=== PATIENT | female | born 1995 | race American Indian/Alaskan Native ===

== ENCOUNTER 2018-02-12 09:16 | Emergency (ER) | payer MEDICAID ==
[2018-02-12 10:00] LABS: Basophils % (Auto) 0.5 % (0.0-1.8); Eosinophils % (Auto) 0.4 % (0.0-4.3); Hematocrit 37.2 % (30.3-42.9); Hemoglobin 11.8 gm/dl (10.1-14.3); Lymphocytes # (Auto) 0.6 K/mm3 (1.2-5.4); Lymphocytes % (Auto) 6.9 % (13.4-35.0); Mean Corpuscular HGB Conc 32 % (30-34); Mean Corpuscular Volume 79 fl (79-97); Monocytes # (Auto) 0.7 K/mm3 (0.0-0.8); Monocytes % (Auto) 8.1 % (0.0-7.3); Red Blood Count 4.73 M/mm3 (3.65-5.03); Red Cell Distribution Width 17.4 % (13.2-15.2)
[2018-02-12 10:03] LABS: Mean Corpuscular Hemoglobin 25 pg (28-32); Platelet Count 289 K/mm3 (140-440)
[2018-02-12 10:19] LABS: Alanine Aminotransferase 9 units/L (7-56); Albumin 5.1 g/dL (3.9-5); BUN/Creatinine Ratio 16; Blood Urea Nitrogen 11 mg/dL (7-17); Hemolysis Index 5; Lipase 11 units/L (13-60)
[2018-02-12 11:01] LABS: Bilirubin,Urine NEG (Negative); Blood,Urine NEG (Negative); Color,Urine Yellow (Yellow); Mucus,Urine 3+ /HPF; Urobilinogen,Urine < 2.0 mg/dL (<2.0)
[2018-02-12 11:02] LABS: HCG Qualitative,Urine Negative (Negative)
--- NOTE | 2018-02-12 11:13 | Emergency Department Report ---
ED Abdominal Pain HPI - General Chief Complaint: Abdominal Pain Stated Complaint: ABDOMINAL PAIN Time Seen by Provider: 02/12/18 11:01 Source: patient, family, RN notes reviewed Mode of arrival: Wheelchair Limitations: No Limitations - History of Present Illness Initial Comments: This is a 22-year-old female who was previously unknown to this provider. Patient does not have a local primary care doctor and has no chronic medical conditions. The patient presents to the ER with a complaint of abdominal pain, nausea and vomiting. The abdominal pain is in the left lower quadrant, suprapubic region, right lower quadrant and right upper quadrant. It has been present for the past 2-3 days. It is sharp and aching, patient indicates no exacerbating or relieving factors. The patient denies irritative and obstructive urinary symptoms, the patient denies feminine discharge. Patient reports multiple sexual contacts within the past year, reports not all of her sexual encounters have been with barrier protection. MD Complaint: abdominal pain -: Gradual Location: RUQ, LLQ, RLQ, suprapubic Severity: moderate Quality: cramping, aching Consistency: intermittent Improves With: rest Worsens With: movement Associated Symptoms: nausea, vomiting. denies: diarrhea, fever, chills, constipation, dysuria, hematemesis, hematochezia, melena, hematuria, anorexia, syncope - Related Data Previous Rx's Medication Instructions Recorded Last Taken Type Acetaminophen [Tylenol Arthritis] 650 mg PO Q6HR PRN #30 tablet.er 02/12/18 Unknown Rx Doxycycline [Vibramycin] 100 mg PO Q12HR #20 capsule 02/12/18 Unknown Rx Ondansetron [Zofran Odt] 4 mg PO Q8HR PRN #20 tab.rapdis 02/12/18 Unknown Rx Allergies Allergy/AdvReac Type Severity Reaction Status Date / Time No Known Allergies Allergy Unverified 02/12/18 09:30 ED Review of Systems ROS: Stated complaint: ABDOMINAL PAIN Other details as noted in HPI Comment: All other systems reviewed and negative ED Past Medical Hx - Past Medical History Previous Medical History?: Yes Additional medical history: Gallbladder pain and sludge, vaginal dleivery x 1 - Surgical History Past Surgical History?: No - Social History Smoking Status: Current Every Day Smoker Substance Use Type: Alcohol, Marijuana - Medications Home Medications: Home Medications Medication Instructions Recorded Confirmed Last Taken Type Acetaminophen [Tylenol Arthritis] 650 mg PO Q6HR PRN #30 tablet.er 02/12/18 Unknown Rx Doxycycline [Vibramycin] 100 mg PO Q12HR #20 capsule 02/12/18 Unknown Rx Ondansetron [Zofran Odt] 4 mg PO Q8HR PRN #20 tab.rapdis 02/12/18 Unknown Rx ED Physical Exam - General Limitations: No Limitations General appearance: alert, in no apparent distress - Head Head exam: Present: atraumatic, normocephalic - Eye Eye exam: Present: normal appearance, EOMI. Absent: nystagmus - ENT ENT exam: Present: normal exam, normal orophraynx, mucous membranes moist, normal external ear exam - Neck Neck exam: Present: normal inspection, full ROM - Respiratory Respiratory exam: Present: normal lung sounds bilaterally. Absent: respiratory distress - Cardiovascular Cardiovascular Exam: Present: regular rate, normal rhythm, normal heart sounds. Absent: systolic murmur, diastolic murmur, rubs, gallop - GI/Abdominal GI/Abdominal exam: Present: soft, tenderness, normal bowel sounds, other ( suprapubic, bilateral lower quadrant tenderness, no rebound, guarding or peritoneal signs). Absent: distended, guarding, rebound, rigid, pulsatile mass - External exam: Present: normal external exam Speculum exam: Present: normal speculum exam. Absent: cervical discharge, vaginal bleeding, foreign body Bi-manual exam: Present: cervical motion tendernes, adnexal tenderness, other ( escorted by phuong villarreal). Absent: uterine enlargement, uterine tenderness - Extremities Exam Extremities exam: Present: normal inspection, full ROM, normal capillary refill. Absent: tenderness, pedal edema, joint swelling, calf tenderness - Back Exam Back exam: Present: normal inspection, full ROM. Absent: tenderness, CVA tenderness (R), paraspinal tenderness, vertebral tenderness - Neurological Exam Neurological exam: Present: alert, oriented X3, CN II-XII intact, normal gait, other (Extraocular movements intact. Tongue midline. No facial droop. Facial sensation intact to light touch in the V1, V2, V3 distribution bilaterally. 5 and 5 strength in 4 extremities.. Sensation is intact to light touch in 4 extremities.). Absent: motor sensory deficit - Psychiatric Psychiatric exam: Present: normal affect, normal mood - Skin Skin exam: Present: warm, dry, intact, normal color. Absent: rash ED Course Vital Signs 02/12/18 02/12/18 02/12/18 08:25 08:30 09:30 Temperature 98.2 F Pulse Rate 65 57 L 77 Respiratory 12 14 18 Rate Blood Pressure 133/65 133/65 140/100 O2 Sat by Pulse 98 99 100 Oximetry 02/12/18 02/12/18 02/12/18 11:04 11:15 11:30 Temperature Pulse Rate 52 L 57 L 60 Respiratory 11 L 14 14 Rate Blood Pressure 124/67 130/84 135/82 O2 Sat by Pulse 100 100 99 Oximetry - Reevaluation(s) Reevaluation #1: 02/12/18 13:23 Differential diagnosis, including but not limited to: Appendicitis, biliary disease, ovarian torsion, ovarian cyst, pelvic inflammatory disease, atypical urinary tract infection Assessment and plan: 22-year-old female, numerous sexual contacts with diffuse abdominal pain and reported nausea and vomiting. Has cervical motion tenderness and bilateral adnexal tenderness. Urinalysis suggestive but not diagnostic of Chlamydia cystitis. Has no irritative urinary symptoms. Ovarian flow is noted on the bilateral ovarian region on the ultrasound. CT scan with IV contrast demonstrates no discrete abscess, although appendicitis is not excluded. After appropriate medication with pain medication and nausea medication the patient's tenderness had resolved, there is specifically no right lower quadrant tenderness with a negative Rovsing sign, and there was also no right upper quadrant tenderness as well. Case was discussed with general surgeon on-call, Dr. Meredith; clinically I favor a diagnosis of pelvic inflammatory disease, and he agrees to see the patient in 24 hours has follow-up for repeat abdominal examination. Patient was medicated empirically for pelvic inflammatory disease, she is reliable to follow-up, and strongly encouraged to return in 24 hours either to this emergency room, or to the general surgeon's office for repeat evaluation. 02/12/18 13:26 Reevaluation #2: 02/12/18 13:49 The patient has an appointment tomorrow, at 9:30 AM, at [address] [place] [address] , [address], [facility], [address]; [phone], with Dr Meredith ED Medical Decision Making - Lab Data Result diagrams: 02/12/18 09:44 02/12/18 09:44 Vital Signs 02/12/18 02/12/18 02/12/18 08:25 08:30 09:30 Temperature 98.2 F Pulse Rate 65 57 L 77 Respiratory 12 14 18 Rate Blood Pressure 133/65 133/65 140/100 O2 Sat by Pulse 98 99 100 Oximetry 02/12/18 02/12/18 02/12/18 11:04 11:15 11:30 Temperature Pulse Rate 52 L 57 L 60 Respiratory 11 L 14 14 Rate Blood Pressure 124/67 130/84 135/82 O2 Sat by Pulse 100 100 99 Oximetry Lab Results 02/12/18 02/12/18 02/12/18 Range/Units 09:44 09:44 10:22 WBC 9.0 (4.5-11.0) K/mm3 RBC 4.73 (3.65-5.03) M/mm3 Hgb 11.8 (10.1-14.3) gm/dl Hct 37.2 (30.3-42.9) % MCV 79 (79-97) fl MCH 25 L (28-32) pg MCHC 32 (30-34) % RDW 17.4 H (13.2-15.2) % Plt Count 289 (140-440) K/mm3 Lymph % (Auto) 6.9 L (13.4-35.0) % Winn % (Auto) 8.1 H (0.0-7.3) % Eos % (Auto) 0.4 (0.0-4.3) % Baso % (Auto) 0.5 (0.0-1.8) % Lymph # 0.6 L (1.2-5.4) K/mm3 Winn # 0.7 (0.0-0.8) K/mm3 Eos # 0.0 (0.0-0.4) K/mm3 Baso # 0.0 (0.0-0.1) K/mm3 Seg Neutrophils % 84.1 H (40.0-70.0) % Seg Neutrophils # 7.6 (1.8-7.7) K/mm3 Sodium 140 (137-145) mmol/L Potassium 3.5 L (3.6-5.0) mmol/L Chloride 98.0 (98-107) mmol/L Carbon Dioxide 22 (22-30) mmol/L Anion Gap 24 mmol/L BUN 11 (7-17) mg/dL Creatinine 0.7 (0.7-1.2) mg/dL Estimated GFR > 60 ml/min BUN/Creatinine Ratio 16 % Glucose 117 H (65-100) mg/dL Calcium 10.0 (8.4-10.2) mg/dL Total Bilirubin 0.60 (0.1-1.2) mg/dL AST 19 (5-40) units/L ALT 9 (7-56) units/L Alkaline Phosphatase 45 (35-129) units/L Total Protein 9.2 H (6.3-8.2) g/dL Albumin 5.1 H (3.9-5) g/dL Albumin/Globulin Ratio 1.2 % Lipase 11 L (13-60) units/L Urine Color Yellow (Yellow) Urine Turbidity Clear (Clear) Urine pH 5.0 (5.0-7.0) Ur Specific [place] 1.028 (1.003-1.030) Urine Protein 100 mg/dl (Negative) mg/dL Urine Glucose (UA) Neg (Negative) mg/dL Urine Ketones 20 (Negative) mg/dL Urine Blood Neg (Negative) Urine Nitrite Neg (Negative) Urine Bilirubin Neg (Negative) Urine Urobilinogen < 2.0 (<2.0) mg/dL Ur Leukocyte Esterase Neg (Negative) Urine WBC (Auto) 21.0 H (0.0-6.0) /HPF Urine RBC (Auto) 3.0 (0.0-6.0) /HPF U Epithel Cells (Auto) 2.0 (0-13.0) /HPF Urine Mucus 3+ /HPF Urine HCG, Qual Negative (Negative) - Radiology Data Radiology results: report reviewed, image reviewed Referring Physician: TEJAL SCHWAB Patient Name: AB PARK Date of : 1995 Sex: Female Report Date: 2018-02-12 Report Status: Finalized Findings [facility] [address] [place] [address] Cat Scan Report Signed Patient: AB PARK MR#: [id number] : 1995 Acct:[id number] Age/Sex: 22 / F ADM Date: 02/12/18 Loc: ED Attending Dr: Ordering Physician: TEJAL SCHWAB MD Date of Service: 02/12/18 Procedure(s): CT abdomen pelvis w con Accession Number(s): [id number] cc: TEJAL SCHWAB MD CT ABDOMEN AND PELVIS WITH CONTRAST INDICATION: Lower abdominal pain. COMPARISON: None similar. FINDINGS: Abdomen and pelvis CT performed following intravenous administration of 100 cc of Omnipaque 300. No oral contrast given. LUNG BASES: Slightly decreased AP chest diameter and exaggerated heart size. No effusions. Mild nonspecific distal esophageal wall prominence/thickening, not excluded for gastroesophageal reflux and/or hiatal hernia, amongst others. ABDOMEN: Left hepatic lobe tip extends into the left upper quadrant. Some streak artifact from umbilical piercing instrument. Some motion artifact. Liver, spleen, gallbladder, pancreas, adrenals, aorta, IVC and kidneys otherwise grossly within normal limits. Indeterminate 5 mm left renal cortical hypodensity posteriorly, axial image 41, series 2. No ascites or size significant adenopathy. Nonopacified GI tract evaluation limited, though grossly nonobstructive. Cecum somewhat low-lying in the right hemipelvis. PELVIS: Small pelvic free fluid in the deep right hemipelvis measures 33HU, axial image 136, possibly hemorrhagic. Approximately 2 cm left adnexal cyst. Uterus, suboptimally distended nonopacified urinary bladder and rectosigmoid otherwise grossly unremarkable. No size significant adenopathy. Unremarkable bones. CONCLUSION: 1. Small pelvic free fluid and a left adnexal/ovarian cyst noted that may be physiologic in a patient of this age. However, cecum suspected low lying in the right hemipelvis with bowel/appendiceal assessment suboptimal. Please also correlate clinically and with laboratory values. 2. Few other incidental findings, as above. Thank you for the opportunity to participate in this patient's care. Transcribed By: RS Dictated By: GWENDOLYN MEMBRENO MD Electronically Authenticated By: GWENDOLYN MEMBRENO MD Signed Date/Time: 02/12/18 1305 Pelvic ultrasound within normal limits, bilateral ovarian flow noted. Critical care attestation.: If time is entered above; I have spent that time in minutes in the direct care of this critically ill patient, excluding procedure time. ED Disposition Clinical Impression: Lower abdominal pain Disposition: DC-01 TO HOME OR SELFCARE Is pt being admited?: No Does the pt Need Aspirin: No Condition: Stable Instructions: Abdominal Pain (ED) Additional Instructions: As we discussed, your laboratory studies appeared to be within normal limits. You are not . The urinalysis suggested but does not diagnose chlamydia infection . Given all this, you'll be treated empirically for disease called pelvic inflammatory disease. We typically treat young females with unexplained lower abdominal pain to protect your ability to have children safely in the future. Cultures were sent today, and results will be available next 3-5 days. Please have your primary care doctor call the medical records department to obtain your culture results. Take the antibiotic therapy as directed. Take the nausea medication and pain medication as directed. I recommend outpatient testing for sexually transmitted diseases, including hepatitis, syphilis and HIV. I also recommend that you abstain from sexual activity until you have completed her antibiotic therapy, a physician states that it is safe for you to resume sexual activity, and any partners that you have been sexually active with have been tested/treated/evaluated for sexual transmitted diseases. However, because the CAT scan was nondiagnostic and did not exclude an inflamed/ infected appendix, it is recommended that he follow-up tomorrow, and 24 hours for repeat abdominal examination. Patient may follow-up either in this emergency room for repeat abdominal examination, or with the general surgeon: Dr Meredith It is very important to closely follow-up as recommended I recommend that you return to the ER right away with worsening pain, migration of pain, intractable nausea/vomiting, inability tolerate liquid feeds. The patient has an appointment tomorrow, at 9:30 AM, at [address] [place] [address] , [address], [facility]; [phone], with Dr Meredith Prescriptions: Acetaminophen [Tylenol Arthritis] 650 mg PO Q6HR PRN #30 tablet.er PRN Reason: Pain Doxycycline [Vibramycin] 100 mg PO Q12HR #20 capsule Ondansetron [Zofran Odt] 4 mg PO Q8HR PRN #20 tab.rapdis PRN Reason: Nausea Referrals: BIANCA ORTEGA MD [Primary Care Provider] - 3-5 Days LINDY MEREDITH MD [Staff Physician] - 3-5 Days
[2018-02-12] MEDS ORDERED: TORADOL IV ONE (11:29)
[2018-02-12] MEDS ORDERED: ZOFRAN IV ONE (11:29)
[2018-02-12] MEDS ORDERED: NACL 0.9% 1000 ML 1,000 ML IV ONE (11:29)
[2018-02-12] MEDS ORDERED: SUBLIMAZE IV ONE ×2 (11:29→12:00)
--- NOTE | 2018-02-12 13:09 | Cat Scan Report ---
CT ABDOMEN AND PELVIS WITH CONTRAST INDICATION: Lower abdominal pain. COMPARISON: None similar. FINDINGS: Abdomen and pelvis CT performed following intravenous administration of 100 cc of Omnipaque 300. No oral contrast given. LUNG BASES: Slightly decreased AP chest diameter and exaggerated heart size. No effusions. Mild nonspecific distal esophageal wall prominence/thickening, not excluded for gastroesophageal reflux and/or hiatal hernia, amongst others. ABDOMEN: Left hepatic lobe tip extends into the left upper quadrant. Some streak artifact from umbilical piercing instrument. Some motion artifact. Liver, spleen, gallbladder, pancreas, adrenals, aorta, IVC and kidneys otherwise grossly within normal limits. Indeterminate 5 mm left renal cortical hypodensity posteriorly, axial image 41, series 2. No ascites or size significant adenopathy. Nonopacified GI tract evaluation limited, though grossly nonobstructive. Cecum somewhat low-lying in the right hemipelvis. PELVIS: Small pelvic free fluid in the deep right hemipelvis measures 33HU, axial image 136, possibly hemorrhagic. Approximately 2 cm left adnexal cyst. Uterus, suboptimally distended nonopacified urinary bladder and rectosigmoid otherwise grossly unremarkable. No size significant adenopathy. Unremarkable bones. CONCLUSION: 1. Small pelvic free fluid and a left adnexal/ovarian cyst noted that may be physiologic in a patient of this age. However, cecum suspected low lying in the right hemipelvis with bowel/appendiceal assessment suboptimal. Please also correlate clinically and with laboratory values. 2. Few other incidental findings, as above. Thank you for the opportunity to participate in this patient's care.
--- NOTE | 2018-02-12 13:14 | Ultrasound Report ---
ULTRASOUND PELVIS DUPLEX DOPPLER COMPLETE - TRANSABDOMINAL AND TRANSVAGINAL: INDICATION: Pelvic pain. COMPARISON: None similar at this institution. FINDINGS: Transabdominal and transvaginal pelvic sonography with spectral Doppler performed in this patient with LMP unknown and demonstrates a homogenous, anteverted 8 x 4.1 x 5.4 cm uterus with endometrial thickness of 1.3 cm, endovaginal image 8. Minimal pelvic free fluid with possible low level echoes. Unremarkable 3.4 x 1 x 1.6 cm right ovary. Left ovary is 3.5 x 2.5 x 2.4 cm with an approximately 1.9 x 1.2 cm possible hemorrhagic intrinsic cyst as on endovaginal image 23. Preserved bilateral ovarian blood flow. CONCLUSION: Physiologic pelvic sonogram with findings, as described. Thank you for the opportunity to participate in this patient's care.
[2018-02-12] MEDS ORDERED: ROCEPHIN/NS 1 GM/50 ML 1 GM/50 ML BAG IV ONE (13:17)
[2018-02-12] MEDS ORDERED: VIBRAMYCIN PO ONE (13:17)
[2018-02-12] MEDS ORDERED: cefTRIAXone 1 GM in NACL 0.9% 20 ML IV ONE (14:00)
[2018-02-12 14:58] VITALS: BP 140/71
== END 2018-02-12 14:55 | disposition home or self-care (01) ==
LOC: ED 09:16
DX: R10.32 Left lower quadrant pain (principal); R10.31 Right lower quadrant pain; F17.200 Nicotine dependence, unspecified, uncomplicated; F12.10 Cannabis abuse, uncomplicated
CPT/HCPCS: 36415; 74177; 76830; 80053; 81001; 81025; 83690; 85025; 87086; 87210; 87591; 93975; 96361; 96374; 96375; 99285; J0696; J1885; J2405; J3010; J7030; Q9967

== ENCOUNTER 2020-08-18 21:42 | Emergency (ER) | payer MEDICAID ==
[2020-08-19 00:09] LABS: Hemoglobin 11.5 gm/dl (10.1-14.3)
[2020-08-19 00:22] LABS: Alanine Aminotransferase 12 units/L (7-56); Albumin 5.2 g/dL (3.9-5); Blood Urea Nitrogen 11 mg/dL (7-17); Calcium 10.1 mg/dL (8.4-10.2); Hemolysis Index 4
[2020-08-19 00:24] LABS: BUN/Creatinine Ratio 16
[2020-08-19 00:26] LABS: Hematocrit 34.5 % (30.3-42.9); Mean Corpuscular HGB Conc 33 % (30-34); Mean Corpuscular Volume 85 fl (79-97); Monocytes # (Auto) 0.2 K/mm3 (0.0-0.8); Platelet Count 247 K/mm3 (140-440); Red Blood Count 4.07 M/mm3 (3.65-5.03); Red Cell Distribution Width 13.9 % (13.2-15.2)
[2020-08-19 01:39] LABS: Basophils % (Manual) 0 % (0.0-1.8); Eosinophils % (Manual) 0 % (0.0-4.3); Total Cells Counted 100
[2020-08-19 01:40] LABS: Ovalocytes Few; Platelet Estimate Consistent w Auto
[2020-08-19] MEDS ORDERED: FAMOTIDINE 20 MG/2 ML INJ IV ONE (04:24)
[2020-08-19] MEDS ORDERED: ONDANSETRON 4 MG/2 ML INJ IV ONE (04:24)
[2020-08-19] MEDS ORDERED: SODIUM CHLORIDE 0.9% 1000 ML 1,000 ML IV ONE (04:24)
[2020-08-19] MEDS ORDERED: MORPHINE 4 MG/1 ML INJ IV ONE (04:25)
--- NOTE | 2020-08-19 05:32 | Cat Scan Report ---
CT ABDOMEN AND PELVIS WITH IV CONTRAST INDICATION: Patient complains of abdominal pain with nausea and vomiting.. COMPARISON: CT 02/12/2018. TECHNIQUE: All CT scans at this facility use dose modulation, automated exposure control, iterative reconstructi on or weight based dosing, when appropriate, to reduce radiation dose to as low as reasonably achieva ble. FINDINGS: Lung Bases: No significant abnormality. Skeletal System: No acute abnormality. ABDOMEN: Liver: No significant abnormality. Gallbladder: No significant abnormality. Bile Ducts: No significant abnormality. Pancreas: No significant abnormality. Spleen: No significant abnormality. Adrenals: No significant abnormality. Right Kidney: No significant abnormality. Left Kidney: No significant abnormality. Upper GI tract: No significant abnormality. Lymph Nodes: No significant adenopathy. Aorta: No significant abnormality. Additional Findings: No significant abnormality. PELVIS: Colon: No acute abnormality. Urinary Bladder and Distal Ureters: No significant abnormality. Appendix: No significant abnormality. Lymph Nodes: No significant adenopathy. Additional Findings: Free fluid in the cul-de-sac is likely physiologic, this is similar to the prior . IMPRESSION: 1. No acute process in the abdomen or pelvis. 2. Incidental findings, as above. Signer Name: Andrea Wolfe MD Signed: 08/19/2020 5:27 AM Workstation Name: [id number]
--- NOTE | 2020-08-19 06:39 | Emergency Department Report ---
<LLUVIA MEJIA - Last Filed: 08/19/20 06:35> ED Abdominal Pain HPI - General Chief Complaint: Abdominal Pain Stated Complaint: NAUSEA AND VOMITING Source: EMS Mode of arrival: Ambulatory Limitations: No Limitations - History of Present Illness Initial Comments: Patient is a 24-year-old -[place] female with no past medical history presents to the ED with complaint of acute onset persistent diffuse abdominal pain that radiates to the lower abdomen diffusely with intractable nausea and vomiting for the last 2 days. Patient states that she has not been able to keep anything down with a food or fluids for the last 12 hours. Patient states that no one else at home is had similar symptoms and suspect that her symptoms may have developed after eating out in a restaurant. Patient denies dysuria, urinary frequency and urgency, vaginal bleeding, vaginal discharge, dizziness, fever, chills, cough, chest pain, shortness of breath, sore throat, headache, hematemesis, hematochezia or diarrhea. MD Complaint: abdominal pain (Diffuse lower), other (Nausea and vomiting) -: Sudden, days(s) (2) Location: periumbilical, suprapubic Radiation: suprapubic Migration to: no migration Severity: severe Severity scale (0 -10): 8 Quality: cramping, aching, sharp Consistency: constant Improves With: nothing Worsens With: eating, vomiting Context: possible food poisoning Associated Symptoms: denies other symptoms, nausea, vomiting, anorexia. denies: diarrhea, fever, chills, constipation, dysuria, hematemesis, hematochezia, aki phuc, hematuria, syncope, other - Related Data LMP Date: 08/06/20 Previous Rx's Medication Instructions Recorded Last Taken Type Acetaminophen [Tylenol Arthritis] 650 mg PO Q6HR PRN #30 tablet.er 02/12/18 Unknown Rx DOXYCYCLINE Hyclate [Vibramycin] 100 mg PO Q12HR #20 capsule 02/12/18 Unknown Rx Dicyclomine [Bentyl] 20 mg PO Q6H PRN #30 tablet 08/19/20 Unknown Rx Famotidine [Pepcid] 20 mg PO BID #30 tablet 08/19/20 Unknown Rx Ketorolac [Toradol] 10 mg PO Q8H PRN #15 tablet 08/19/20 Unknown Rx Ondansetron [Zofran ODT TAB] 4 mg PO Q6HR PRN #20 tab.rapdis 08/19/20 Unknown Rx Allergies Allergy/AdvReac Type Severity Reaction Status Date / Time No Known Allergies Allergy Unverified 02/12/18 09:30 ED Review of Systems Constitutional: denies: chills, fever Eyes: denies: eye pain, eye discharge, vision change ENT: denies: ear pain, throat pain Respiratory: denies: cough, shortness of breath, wheezing Cardiovascular: denies: chest pain, palpitations Endocrine: no symptoms reported Gastrointestinal: abdominal pain, nausea, vomiting. denies: diarrhea Genitourinary: denies: urgency, dysuria, discharge Musculoskeletal: denies: back pain, joint swelling, arthralgia Skin: denies: rash, lesions Neurological: denies: headache, weakness, paresthesias Psychiatric: denies: anxiety, depression Hematological/Lymphatic: denies: easy bleeding, easy bruising ED Past Medical Hx - Past Medical History Previous Medical History?: Yes Additional medical history: Gallbladder pain and sludge, vaginal dleivery x 1 - Social History Smoking Status: Never Smoker Substance Use Type: Marijuana - Medications Home Medications: Home Medications Medication Instructions Recorded Confirmed Last Taken Type Acetaminophen [Tylenol Arthritis] 650 mg PO Q6HR PRN #30 tablet.er 02/12/18 Unknown Rx DOXYCYCLINE Hyclate [Vibramycin] 100 mg PO Q12HR #20 capsule 02/12/18 Unknown Rx Dicyclomine [Bentyl] 20 mg PO Q6H PRN #30 tablet 08/19/20 Unknown Rx Famotidine [Pepcid] 20 mg PO BID #30 tablet 08/19/20 Unknown Rx Ketorolac [Toradol] 10 mg PO Q8H PRN #15 tablet 08/19/20 Unknown Rx Ondansetron [Zofran ODT TAB] 4 mg PO Q6HR PRN #20 tab.rapdis 08/19/20 Unknown Rx ED Physical Exam - General Limitations: No Limitations General appearance: alert, in no apparent distress, anxious - Head Head exam: Present: atraumatic, normocephalic, normal inspection - Eye Eye exam: Present: normal appearance, PERRL, EOMI Pupils: Present: normal accommodation - ENT ENT exam: Present: normal exam, normal orophraynx, mucous membranes moist, TM's normal bilaterally, normal external ear exam - Neck Neck exam: Present: normal inspection, full ROM - Respiratory Respiratory exam: Present: normal lung sounds bilaterally. Absent: respiratory distress, wheezes, rales, rhonchi, stridor, chest wall tenderness, accessory muscle use, decreased breath sounds, prolonged expiratory - Cardiovascular Cardiovascular Exam: Present: normal rhythm, bradycardia, normal heart sounds. Absent: systolic murmur, diastolic murmur, rubs, gallop - GI/Abdominal GI/Abdominal exam: Present: soft, tenderness (Palpable moderately diffuse tenderness in lower abdomen), normal bowel sounds. Absent: guarding, rebound, rigid, hyperactive bowel sounds, hypoactive bowel sounds, organomegaly, mass, bruit - Bi-manual exam: Present: other (Pelvic exam deferred, patient uncooperative) - Extremities Exam Extremities exam: Present: normal inspection, full ROM, normal capillary refill - Back Exam Back exam: Present: normal inspection, full ROM. Absent: tenderness, CVA tenderness (R), muscle spasm, paraspinal tenderness, vertebral tenderness - Neurological Exam Neurological exam: Present: alert, oriented X3, CN II-XII intact, normal gait, reflexes normal - Psychiatric Psychiatric exam: Present: normal affect, normal mood - Skin Skin exam: Present: warm, dry, intact, normal color. Absent: rash ED Medical Decision Making - Lab Data Result diagrams: 08/18/20 23:33 08/18/20 23:33 - Radiology Data Radiology results: report reviewed, [place] [address] Cat Scan Report Signed Patient: AB PARK MR#: [id number] : 1995 Acct:[id number] Age/Sex: 24 / F ADM Date: 08/18/20 Loc: ED Attending Dr: Ordering Physician: JONATHAN PFEIFFER Date of Service: 08/19/20 Procedure(s): CT abdomen pelvis w con Accession Number(s): [id number] cc: JONATHAN PFEIFFER CT ABDOMEN AND PELVIS WITH IV CONTRAST INDICATION: Patient complains of abdominal pain with nausea and vomiting.. COMPARISON: CT 02/12/2018. TECHNIQUE: All CT scans at this facility use dose modulation, automated exposure control, iterative reconstruction or weight based dosing, when appropriate, to reduce radiation dose to as low as reasonably achievable. FINDINGS: Lung Bases: No significant abnormality. Skeletal System: No acute abnormality. ABDOMEN: Liver: No significant abnormality. Gallbladder: No significant abnormality. Bile Ducts: No significant abnormality. Pancreas: No significant abnormality. Spleen: No significant abnormality. Adrenals: No significant abnormality. Right Kidney: No significant abnormality. Left Kidney: No significant abnormality. Upper GI tract: No significant abnormality. Lymph Nodes: No significant adenopathy. Aorta: No significant abnormality. Additional Findings: No significant abnormality. PELVIS: Colon: No acute abnormality. Urinary Bladder and Distal Ureters: No significant abnormality. Appendix: No significant abnormality. Lymph Nodes: No significant adenopathy. Additional Findings: Free fluid in the cul-de-sac is likely physiologic, this is similar to the prior. IMPRESSION: 1. No acute process in the abdomen or pelvis. 2. Incidental findings, as above. Signer Name: Andrea Wolfe MD Signed: 08/19/2020 5:27 AM Workstation Name: [id number] Transcribed By: SW Dictated By: Andrea Wolfe MD Electronically Authenticated By: Andrea Wolfe MD Signed Date/Time: 08/19/20526 DD/ 2 TD/TT: - Medical Decision Making This is a 24-year-old -[place] female with no past medical history presents to the ED with complaint of acute onset persistent diffuse abdominal pain that radiates to the lower abdomen diffusely with intractable nausea and vomiting for the last 2 days. Patient states that she has not been able to keep anything down with a food or fluids for the last 12 hours. Patient states that no one else at home is had similar symptoms and suspect that her symptoms may have developed after eating out in a restaurant. In the ED, patient is alert and oriented x3 and is not in distress but anxious and quite uncooperative during the physical exam. Patient was treated for nausea and vomiting, also treated with antacids and pain medications. Lab test results were reviewed and are all nonactionable. Patient however declined to give in your urine for urinalysis despite being advised to do so several times. Abdomen pelvis CT scan with contrast showed no acute abnormalities in the abdomen and pelvis. On reevaluation, patient's abdominal pain and nausea and vomiting resolved with medications and patient passed all oral fluid challenge in the ED. Patient was discharged home on antiemetics, antacids and pain medications and was advised to maintain a clear liquid diet for 12 to 24 hours, take medications and follow-up with her primary care physician in 3 to 5 days for reevaluation. Patient also was advised return to the ED immediately if symptoms get worse. - Differential Diagnosis Gastroenteritis; appendicitis; ovarian cyst; gastritis; GERD; UTI; pregnanc ED Disposition Clinical Impression: Abdominal pain, lower, Nausea and vomiting in adult Disposition: DC-01 TO HOME OR SELFCARE Is pt being admited?: No Does the pt Need Aspirin: No Condition: Stable Instructions: Acute Nausea and Vomiting (ED), Abdominal Pain (ED) Additional Instructions: All lab test results are unremarkable. Abdomen pelvis CT scan with contrast showed no acute abnormalities. Therefore maintain a clear liquid diet for 12 to 24 hours, take medication for nausea and vomiting and for pain, and follow-up with your primary care physician in 3 to 5 days for reevaluation. Return to the ED immediately if symptoms get worse. Prescriptions: Dicyclomine [Bentyl] 20 mg PO Q6H PRN #30 tablet PRN Reason: Abdominal pain Famotidine [Pepcid] 20 mg PO BID #30 tablet Ketorolac [Toradol] 10 mg PO Q8H PRN #15 tablet PRN Reason: Pain Ondansetron [Zofran ODT TAB] 4 mg PO Q6HR PRN #20 tab.rapdis PRN Reason: Nausea Referrals: [facility] [Provider Group] - 3-5 Days Forms: Work/School Release Form(ED) Time of Disposition: 06:37 Print Language: TONGAN <TEJAL SCHWAB - Last Filed: 08/20/20 05:51> ED Review of Systems ROS: Stated complaint: NAUSEA AND VOMITING Other details as noted in HPI ED Course Vital Signs 08/18/20 08/19/20 08/19/20 23:31 05:26 05:56 Temperature 99.0 F Pulse Rate 57 L Respiratory 18 20 20 Rate Blood Pressure 139/61 Blood Pressure [Left] O2 Sat by Pulse 100 Oximetry 08/19/20 07:00 Temperature 98.6 F Pulse Rate 60 Respiratory 20 Rate Blood Pressure Blood Pressure 122/66 [Left] O2 Sat by Pulse 98 Oximetry - Reevaluation(s) Reevaluation #1: 08/20/20 05:51 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 ED Medical Decision Making - Lab Data Result diagrams: 08/18/20 23:33 08/18/20 23:33 Critical care attestation.: If time is entered above; I have spent that time in minutes in the direct care o f this critically ill patient, excluding procedure time. ED Disposition Is pt being admited?: No Does the pt Need Aspirin: No
[2020-08-19 08:19] VITALS: BP 122/66
== END 2020-08-19 09:00 | disposition home or self-care (01) ==
LOC: ED 21:42
DX: R10.30 Lower abdominal pain, unspecified (principal); R11.2 Nausea with vomiting, unspecified; F12.10 Cannabis abuse, uncomplicated; Z79.899 Other long term (current) drug therapy
CPT/HCPCS: 36415; 74177; 80053; 83690; 84703; 85007; 85025; 96361; 96374; 96375; 99284; J2270; J2405; J7030; Q9967